=== PATIENT | female | born 1935 | race Caucasian/White ===

== ENCOUNTER 2019-11-24 05:19 | Day surgery (SDC) | payer MEDICARE, OTHER ==
[2019-11-17 15:29] LABS: BASOPHILS # (AUTO) 0.1 X10'3 (0-0.2); BASOPHILS % (AUTO) 1.1 % (0-1); EOSINOPHILS # (AUTO) 0.4 X10'3 (0-0.9); EOSINOPHILS % (AUTO) 4.1 % (0-6); LYMPHOCYTES # (AUTO) 2.6 X10'3 (1.1-4.8); LYMPHOCYTES % (AUTO) 26.3 % (21-51); MEAN CORPUSCULAR HGB CONC 34.7 g/dL (33.0-36.5); MEAN CORPUSCULAR VOLUME 95.1 FL (78-98); MEAN PLATELET VOLUME 6.6 FL (7.4-10.4); MONOCYTES # (AUTO) 0.8 X10'3 (0-0.9); MONOCYTES % (AUTO) 8.2 % (2-12); NEUTROPHILS # (AUTO) 5.9 X10'3 (1.8-7.7); NEUTROPHILS % (AUTO) 60.3 % (42-75); PRE OP HEMATOCRIT 37.3 % (35.0-45.0); PRE OP PLATELET COUNT 303 X10'3 (140-440); RED BLOOD COUNT 3.93 X10'6 (4.20-5.60); RED CELL DISTRIBUTION WIDTH 14.4 % (11.5-14.5)
[2019-11-17 15:45] LABS: ALBUMIN 3.7 G/DL (3.4-5.0); ALBUMIN/GLOBULIN RATIO 1.1 (1.1-1.5); ALKALINE PHOSPHATASE 81 IU/L (46-116); BLOOD UREA NITROGEN 19 MG/DL (7-18); CALCIUM 9.1 MG/DL (8.5-10.1); CHLORIDE 107 MMOL/L (99-107); CREATININE 0.95 MG/DL (0.40-0.90); PRE OP ALT 30 U/L (30-65); PRE OP ANION GAP 6 (8-16); PRE OP AST 22 U/L (10-37); PRE OP BILIRUB, TOTAL 0.3 MG/DL (0.0-1.0); PRE OP GLUCOSE 87 MG/DL (70-104); PRE OP POTASSIUM 4.1 MMOL/L (3.4-5.1); PRE OP SODIUM 145 MMOL/L (135-145); TOTAL CARBON DIOXIDE 31.9 MMOL/L (24-32); TOTAL PROTEIN 7.1 G/DL (6.4-8.2); eGFR 56 ML/MIN
[2019-11-24] VITALS (8 sets, daily range): BP systolic 122–136; BP diastolic 57–94
[~2019-11-24] VITALS: Ht 180.3 cm; Wt 66.0 kg
[~2019-11-24 05:19] MED LIST: ATOR10TA87 PO; CA C1TAB93 PO; COQ10 PO; LEVO50TA8 PO; VITAMIN B-12 PO; VITAMIN D3 PO; VITAMIN E PO
[2019-11-24] MEDS ORDERED: famotidine 10mg tablet PO ONE (05:30)
[2019-11-24] MEDS ORDERED: ringers solution, lacted 1,000 ML IV SCH ×2 (05:30→07:12)
[2019-11-24] MEDS ORDERED: cefazolin/dext.iso 2gm/100ml 100 ML IV ONE (05:30)
[2019-11-24] MEDS ORDERED: LIDOcaine 1% (10mg/ml) 2ml vial ONE (05:47)
[2019-11-24] MEDS ORDERED: BUPIVAcaine/PF 2.5mg/ml (0.25%) 10ml vial ONE (06:43)
[2019-11-24] MEDS ORDERED: LIDOcaine 0.5% (5mg/ml) 50ml vial ONE (07:09)
[2019-11-24] MEDS ORDERED: labetalol 20mg/4ml (5mg/ml) syringe IV PRN (07:15)
[2019-11-24] MEDS ORDERED: fentaNYL/PF 50MCG/1 ML 2ML syringe IV PRN ×2 (07:15)
[2019-11-24] MEDS ORDERED: hydrALAZINE 20mg/ml inj. IV PRN (07:15)
[2019-11-24] MEDS ORDERED: ondansetron/PF 4mg/2ml inj IV PRN (07:15)
[2019-11-24] MEDS ORDERED: morphine 4 MG/ML inj SYRINge IV PRN ×2 (07:15)
[2019-11-24] MEDS ORDERED: fentaNYL/PF 50MCG/1 ML 2ML syringe ONE (07:19)
[2019-11-24] MEDS ORDERED: MIDAZolam 5mg/5ml vial ONE (07:19)
[2019-11-24] MEDS ORDERED: propofol inj 20 ML IV ONE ×2 (07:22→07:25)
--- NOTE | 2019-11-24 08:13 | NUR ---
Received from OR via [facility] , accompanied by Anesthesiologist DR AJ and report given by Anesthesiologist. PT AWAKE, DENIES PAIN, RIGHT HAND/WRIST W/BIAS WRAP COVERING INCISION/DRSG, CDI. WARMING BLANKETS APPLIED FOR TEMP 35.8. Addendum: 11/24/19 at 0832 by Maria Del Carmen Bernard RN Amended: Links added.
--- NOTE | 2019-11-24 09:13 | NUR ---
D/C INSTRUCTIONS GIVEN AND GONE OVER W/PT AND PTS WHOM VERBALIZE UNDERSTANDING, PT D/CD TO HOME VIA W/C TO PRIVATE VEHICLE W/O INCIDENT. Addendum: 11/24/19 at 0933 by Maria Del Carmen Bernard RN Amended: Links added.
== END 2019-11-24 09:13 | disposition home or self-care (01) ==
LOC: PAS 05:19
PROVIDERS: ATTEND Orthopaedic Surgery Hand Surgery
DX: M72.0 Palmar fascial fibromatosis [Dupuytren] (principal); M18.11 Unilateral primary osteoarthritis of first carpometacarpal joint, right hand; E78.00 Pure hypercholesterolemia, unspecified; E03.9 Hypothyroidism, unspecified; M13.88 Other specified arthritis, other site; N18.9 Chronic kidney disease, unspecified; Z72.89 Other problems related to lifestyle; Z88.2 Allergy status to sulfonamides; Z79.899 Other long term (current) drug therapy; Z90.710 Acquired absence of both cervix and uterus; Z98.890 Other specified postprocedural states; Z96.652 Presence of left artificial knee joint; Z90.49 Acquired absence of other specified parts of digestive tract; Z88.0 Allergy status to penicillin; Z79.2 Long term (current) use of antibiotics
CPT/HCPCS: 26123; 36415; 80053; 82948; 85025; 93005; A6222; J2001; J2250; J2704; J3010; J3490; J7120; A4215; A4618; A6449; A7000

== ENCOUNTER 2021-08-26 09:39 | Day surgery (SDC) | payer MEDICARE, OTHER ==
[2021-08-18 13:48] LABS: BASOPHILS # (AUTO) 0.1 X10'3 (0-0.2); BASOPHILS % (AUTO) 0.8 % (0-1); EOSINOPHILS # (AUTO) 0.3 X10'3 (0-0.9); EOSINOPHILS % (AUTO) 3.1 % (0-6); LYMPHOCYTES # (AUTO) 2.6 X10'3 (1.1-4.8); LYMPHOCYTES % (AUTO) 29.5 % (21-51); MEAN CORPUSCULAR HEMOGLOBIN 32.5 PG (27.0-31.0); MEAN CORPUSCULAR HGB CONC 33.9 g/dL (33.0-36.5); MEAN CORPUSCULAR VOLUME 95.8 FL (78-98); MEAN PLATELET VOLUME 6.3 FL (7.4-10.4); MONOCYTES # (AUTO) 0.7 X10'3 (0-0.9); MONOCYTES % (AUTO) 8.4 % (2-12); NEUTROPHILS # (AUTO) 5.2 X10'3 (1.8-7.7); NEUTROPHILS % (AUTO) 58.2 % (42-75); PRE OP HEMATOCRIT 38.5 % (35.0-45.0); PRE OP HEMOGLOBIN 13.1 g/dL (12.0-16.0); PRE OP PLATELET COUNT 320 X10'3 (140-440); RED BLOOD COUNT 4.02 X10'6 (4.20-5.60); RED CELL DISTRIBUTION WIDTH 13.7 % (11.5-14.5)
[2021-08-18 14:00] LABS: ALBUMIN 3.7 G/DL (3.4-5.0); ALKALINE PHOSPHATASE 79 IU/L (46-116); BLOOD UREA NITROGEN 12 MG/DL (7-18); BUN/CREATININE RATIO 13.5 (6.6-38.0); CALCIUM 8.5 MG/DL (8.5-10.1); CHLORIDE 106 MMOL/L (99-107); CREATININE 0.89 MG/DL (0.40-0.90); PRE OP ALT 36 U/L (30-65); PRE OP ANION GAP 7 (8-16); PRE OP AST 27 U/L (10-37); PRE OP BILIRUB, TOTAL 0.5 MG/DL (0.0-1.0); PRE OP GLUCOSE 93 MG/DL (70-104); PRE OP SODIUM 142 MMOL/L (135-145); TOTAL CARBON DIOXIDE 29.5 MMOL/L (24-32); TOTAL PROTEIN 7.5 G/DL (6.4-8.2); eGFR 60 ML/MIN
[~2021-08-26] VITALS: Ht 154.9 cm; Wt 67.1 kg
[~2021-08-26 09:39] MED LIST changes: +BUPIVAcaine/PF 2.5 mg/ml (0.25%) 30ml vial ONE; +CLINDAMYCIN/D5W 900mg/50ml 50 ML IV ONE; +famotidine 20mg tablet PO ONE; +ringers solution, lacted 1,000 ML IV SCH
[2021-08-26 10:30] VITALS: BP 127/79
[2021-08-26] MEDS ORDERED: MIDAZolam 1 MG/ML 5ML VIAL ONE (11:56)
[2021-08-26] MEDS ORDERED: fentaNYL/PF 50MCG/1 ML 2ML syringe ONE (11:56)
[2021-08-26] MEDS ORDERED: propofol inj 20 ML IV ONE (12:55)
[2021-08-26 13:00] VITALS: BP 112/53
--- NOTE | 2021-08-26 13:05 | NUR ---
Received from OR via , accompanied by Anesthesiologist and report given by Anesthesiolgist. .PATIENT WAKING UP, DENIES PAIN, V/S WNL, NEUROVASCULAR INTACT, DRESSING TO RIGHT HAND CDI.
[2021-08-26 13:10] VITALS: BP 116/59
[2021-08-26 13:20] VITALS: BP 121/57
[2021-08-26 13:30] VITALS: BP 112/58
[2021-08-26 13:40] VITALS: BP 119/63
--- NOTE | 2021-08-26 13:40 | NUR ---
.PATIENT a&ox4, DENIES PAIN, V/S WNL, NEUROVASCULAR INTACT, DRESSING TO RIGHT HAND CDI. i have reviewed d/c instructions with patient and they have verbalized understanding. extra rubber bands given to patient. physical therapy demonstrated and reinforced 3 sets 10x each 5x a day. instructions given to patient and she and her verbalized understanding. patient iv d/c and she was d/c home with all belongings and gave transport.
== END 2021-08-26 13:40 | disposition home or self-care (01) ==
LOC: PAS 09:39
PROVIDERS: ATTEND Orthopaedic Surgery Hand Surgery
DX: M24.541 Contracture, right hand (principal); M18.11 Unilateral primary osteoarthritis of first carpometacarpal joint, right hand; J45.909 Unspecified asthma, uncomplicated; F41.9 Anxiety disorder, unspecified; E03.9 Hypothyroidism, unspecified; Z87.01 Personal history of pneumonia (recurrent); Z79.899 Other long term (current) drug therapy; Z20.822 Contact with and (suspected) exposure to COVID-19; Z88.2 Allergy status to sulfonamides; Z88.0 Allergy status to penicillin; Z72.89 Other problems related to lifestyle; Z90.710 Acquired absence of both cervix and uterus; Z98.890 Other specified postprocedural states; Z90.49 Acquired absence of other specified parts of digestive tract; Z96.652 Presence of left artificial knee joint
CPT/HCPCS: 20690; 26525; 36415; 80053; 82948; 85025; 93005; A6222; C1713; J2250; J2704; J3010; J3490; U0003; U0005; Z7506; Z7508; Z7512; A4215; A4615; A6449; J7120

== ENCOUNTER 2022-09-27 07:55 | Day surgery (SDC) | payer MEDICARE, OTHER ==
[~2022-09-27] VITALS: Ht 153.7 cm; Wt 65.0 kg
[~2022-09-27 07:55] MED LIST changes: -BUPIVAcaine/PF 2.5 mg/ml (0.25%) 30ml vial ONE; -CLINDAMYCIN/D5W 900mg/50ml 50 ML IV ONE; -famotidine 20mg tablet PO ONE; -ringers solution, lacted 1,000 ML IV SCH
[2022-09-27 08:05] VITALS: BP 131/85
[2022-09-27] MEDS ORDERED: FENTANYL CITRATE/PF 50 MCG/1 ML VIAL ONE (08:24)
[2022-09-27] MEDS ORDERED: MIDAZolam 1 MG/ML 5ML VIAL ONE (08:24)
[2022-09-27 09:50] VITALS: BP 97/64
[2022-09-27 10:00] VITALS: BP 117/57
[2022-09-27 10:10] VITALS: BP 123/61
[2022-09-27 10:20] VITALS: BP 121/55
== END 2022-09-27 10:30 | disposition home or self-care (01) ==
LOC: GI LAB 07:55
PROVIDERS: ATTEND Internal Medicine Gastroenterology
DX: Z09 Encounter for follow-up examination after completed treatment for conditions other than malignant neoplasm (principal); K62.1 Rectal polyp; K63.5 Polyp of colon; D12.6 Benign neoplasm of colon, unspecified; K57.30 Diverticulosis of large intestine without perforation or abscess without bleeding; F10.90 Alcohol use, unspecified, uncomplicated; Z86.010 Personal history of colon polyps; Z88.0 Allergy status to penicillin; Z88.2 Allergy status to sulfonamides; Z79.899 Other long term (current) drug therapy
CPT/HCPCS: 45380; 45385; G0500; J2250; J3010; J7030; Z7512; 88305; 99152; 99153; A4620; C1889